=== PATIENT | female | born 1985 | race Caucasian/White ===

== ENCOUNTER 2024-01-28 10:53 | Day surgery (SDC) | payer OTHER ==
[~2024-01-28] VITALS: Ht 162.7 cm; Wt 76.0 kg
[2024-01-28] VITALS (8 sets, daily range): BP systolic 106–123; BP diastolic 60–83; PULSE 49–72; TEMP 98.6
[2024-01-28] MEDS ORDERED: 1/2 NS 1,000 ML IV SCH (11:30)
[2024-01-28] MEDS ORDERED: Clopidogrel 300 MG DOSE (75 mg x 4 tabs) PO ONE (11:30)
[2024-01-28] MEDS ORDERED: ASHWAGANDHA300 MG PO (11:45)
[2024-01-28 11:48] LABS: HEMATOCRIT 39.1 % (37.0-47.0); HEMOGLOBIN 13.7 g/dl (12.5-16.0); MEAN CELL VOLUME 87 fl (80.0-100.0); MEAN CORPUSCULAR HEMOGLOBIN 30 pg (27-31); MEAN CORPUSCULAR HGB CONC 35 g/dl (33.0-37.0); MEAN PLATELET VOLUME 9.7 fl (7.4-10.4); PLATELET COUNT 322 K/mm3 (130-400); RED BLOOD COUNT 4.52 M/mm3 (4.10-5.30); REDCELL DISTRIBUTION WIDTH-CV 12.1 % (11.5-14.5)
[2024-01-28 11:58] LABS: PARTIAL THROMBOPLASTIN TIME 28.6 SECONDS (26.0-37.0); PROTHROMBIN TIME 10.7 SECONDS (9.7-12.8)
[2024-01-28 12:05] LABS: CALCIUM 9.5 mg/dL (8.4-10.2); CREATININE, serum 0.75 mg/dL (0.57-1.11); POTASSIUM 3.8 mEq/L (3.5-4.5)
[2024-01-28] MEDS ORDERED: niCARdipine (Cath Lab) 100 MCG/ML 10 ML VIAL IA SCH (15:00)
[2024-01-28] MEDS ORDERED: Heparin 1,000 UNITS/ML 10 ML Multi-Dose VIAL IA SCH (15:01)
[2024-01-28] MEDS ORDERED: Nitroglycerin 100 MCG/ML (Cath Lab) 10 ML VIAL IA SCH (15:02)
[2024-01-28] MEDS ORDERED: Iohexol 350 - 100 ML VIAL INCOR ONE (15:03)
[2024-01-28] MEDS ORDERED: Midazolam 2 MG/2 ML VIAL IV SCH (15:04)
[2024-01-28] MEDS ORDERED: fentaNYL 50 MCG/ML 2 ML VIAL IV SCH (15:05)
--- NOTE | 2024-01-28 15:20 | NUR ---
Aicha was transferred back to express unit rm [address] Shirley. TR band to rt wrist, cms intact. PT hooked up for post procedure vitals. at bs with prasanth BS report and hand off of care to Jalen LAMA.
--- NOTE | 2024-01-28 17:02 | NUR ---
Report given to DAINA Rubalcava who will take over cares of pt during recovery. 6ml of air have been removed from TR band. No bleeding or complications at site. Pt is alert, sitting up in bed visiting with . She has remained free of complaints since return from [facility]. Call light in reach. Pt reviewing DC paperwork. She ate meal and denies further needs at this time.
== END 2024-01-28 17:35 | disposition home or self-care (01) ==
LOC: COL.CAR 10:53
PROVIDERS: Internal Medicine Interventional Cardiology
DX: I25.10 Atherosclerotic heart disease of native coronary artery without angina pectoris (principal)
CPT/HCPCS: C1769; J1644; J2250; J2404; J3010; Q9967